=== PATIENT | male | born 1995 | race Caucasian/White ===

== ENCOUNTER → 2019-02-21 | Outpatient (CLI) | payer OTHER ==
[~2019-02-21] MED LIST: E-Z-GAS II EFFERVESCENT PACKET (SODIUM BICARB./CITRIC ACID/SIMETHICONE) As Ordered ONE; E-Z-HD 98% w/w 340GM SUSP BTL As Ordered ONE; E-Z-PAQUE 96% w/w SUSP 176GM BTL As Ordered ONE
--- NOTE | 2019-02-21 17:25 | REP ---
Esophagram The procedure was performed under the direct supervision of Dr. Sullivan. The images were reviewed with Dr. Sullivan. 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 The superior mediastinal structures are midline. The heart size is within normal limits. The lungs are clear. Liquid barium and gas producing granules were given in the erect position as well as liquid barium in the prone oblique positions in order to perform a double contrast esophagram examination. The oral and pharyngeal stages of deglutition are unremarkable. Esophageal transport is prompt and efficient and there is no esophagitis, stricture, mucosal ring or hiatal hernia. Gastroesophageal reflux is not demonstrated on this examination. Impression: Double contrast esophagram examination within normal limits. 0.6 minutes of fluoro time was utilized for this procedure. Electronically Signed by CHRISTEL Pfeiffer 02/21/2019 04:16 P Electronically Signed by Charbel Sullivan MD 02/21/2019 05:16 P
== END ==
LOC: M RAD 09:20
PROVIDERS: ATTEND Nurse Practitioner
DX: R13.10 Dysphagia, unspecified (principal); K21.9 Gastro-esophageal reflux disease without esophagitis

== ENCOUNTER 2019-03-29 10:17 | Day surgery (SDC) | payer OTHER ==
[~2019-03-29] VITALS: Ht 188 cm; Wt 93.0 kg
[~2019-03-29 10:17] MED LIST changes: -E-Z-GAS II EFFERVESCENT PACKET (SODIUM BICARB./CITRIC ACID/SIMETHICONE) As Ordered ONE; -E-Z-HD 98% w/w 340GM SUSP BTL As Ordered ONE; -E-Z-PAQUE 96% w/w SUSP 176GM BTL As Ordered ONE; +NS 1,000 ML IV ONE; +OMEP40CA97 PO
[2019-03-29] MEDS ORDERED: PROPOFOL 200 MG/20 ML VIAL As Ordered ONE (12:24)
[2019-03-29] MEDS ORDERED: LIDOCAINE 2% INJ 100 MG/5 ML SDV (FOR ANES.) As Ordered ONE (12:24)
--- NOTE | 2019-03-29 12:28 | ROOR ---
Patient Name: Ambrose Hernandez Procedure Date: 03/29/2019 12:11 PM Date of : 1995 Age: 23 Room: [facility] Gender: Male Note Status: Finalized Procedure: Upper GI endoscopy Indications: Dysphagia, Heartburn Providers: Jose Mcdaniel Jr, MD Referring MD: Eusebio MANCUSO NP Requesting Provider: Medicines: Propofol per Anesthesia Complications: No immediate complications. Procedure: Pre-Anesthesia Assessment: - Prior to the procedure, a History and Physical was performed, and patient medications and allergies were reviewed. The patient is competent. The risks and benefits of the procedure and the sedation options and risks were discussed with the patient. All questions were answered and informed consent was obtained. Patient identification and proposed procedure were verified by the physician and the nurse in the pre-procedure area and in the procedure room. Mental Status Examination: alert and oriented. Airway Examination: normal oropharyngeal airway and neck mobility. Respiratory Examination: clear to auscultation. CV Examination: normal. ASA Grade Assessment: II - A patient with mild systemic disease. After reviewing the risks and benefits, the patient was deemed in satisfactory condition to undergo the procedure. The anesthesia plan was to use moderate sedation / analgesia (conscious sedation). Immediately prior to administration of medications, the patient was re-assessed for adequacy to receive sedatives. The heart rate, respiratory rate, oxygen saturations, blood pressure, adequacy of pulmonary ventilation, and response to care were monitored throughout the procedure. The physical status of the patient was re-assessed after the procedure. The Endoscope was introduced through the mouth, and advanced to the second part of duodenum. The upper GI endoscopy was accomplished without difficulty. The patient tolerated the procedure well. Findings: The upper third of the esophagus, middle third of the esophagus, lower third of the esophagus and gastroesophageal junction were normal. The cardia, gastric fundus, gastric body, gastric antrum, prepyloric region of the stomach and pylorus were normal. Biopsies were taken with a cold forceps for histology. Biopsies were taken with a cold forceps for histology. The duodenal bulb, first portion of the duodenum and second portion of the duodenum were normal. Impression: - Normal upper third of esophagus, middle third of esophagus, lower third of esophagus and gastroesophageal junction. - Normal cardia, gastric fundus, gastric body, antrum, prepyloric region of the stomach and pylorus. Biopsied. - Normal duodenal bulb, first portion of the duodenum and second portion of the duodenum. Recommendation: - Discharge patient to home (ambulatory). - Return to my office in 2 weeks. Jose Mcdaniel MD Jose Mcdaniel Jr, MD 03/29/2019 12:27:33 PM Electronically signed by Jose Mcdaniel Jr, MD Number of Addenda: 0 Note Initiated On: 03/29/2019 12:11 PM Estimated Blood Loss: Estimated blood loss: none.
[2019-03-29 12:45] VITALS: BP 140/88
== END 2019-03-29 13:04 | disposition home or self-care (01) ==
LOC: M OPP 10:17 → EDUNIT# 11:30 → M OPP 13:04
PROVIDERS: ATTEND Surgery
DX: R12 Heartburn (principal); R13.10 Dysphagia, unspecified

== ENCOUNTER → 2019-05-03 | Outpatient (REF) | payer OTHER ==
[~2019-05-03] MED LIST changes: -NS 1,000 ML IV ONE
[2019-05-03 13:42] LABS: APPEARANCE, URINE HAZY (CLEAR); BACTERIA, URINE AUTO NEGATIVE (NEGATIVE); BILIRUBIN, URINE AUTO NEGATIVE (NEGATIVE); BLOOD, URINE BLOOD NEGATIVE (NEGATIVE); COLOR, URINE YELLOW (YELLOW); GLUCOSE, URINE (UA) AUTO NEGATIVE (NEGATIVE); KETONE, URINE AUTO NEGATIVE (NEGATIVE); LEUKOCYTE ESTERASE, URINE AUTO NEGATIVE (NEGATIVE); MUCUS, URINE SMALL (NEGATIVE); NITRITE, URINE AUTO NEGATIVE (NEGATIVE); PROTEIN, URINE AUTO NEGATIVE (NEGATIVE); RBC, URINE AUTO 0 /HPF (0-3); SPECIFIC GRAVITY URINE AUTO 1.029 (1.002-1.035); SQUAMOUS EPITHELIAL CELL UR AU 0 /HPF (0-6); WBC, URINE AUTO 1 /HPF (0-3)
== END ==
LOC: M SMT 13:02
PROVIDERS: ATTEND Nurse Practitioner Women's Health
DX: R30.0 Dysuria (principal)